=== PATIENT | male | born 1965 | race Caucasian/White ===

== ENCOUNTER 2018-04-14 13:29 | Emergency (ER) | payer MEDICAID, OTHER ==
[~2018-04-14] VITALS: Ht 175.3 cm; Wt 86.4 kg
[2018-04-14 13:35] VITALS: BP 110/67
== END 2018-04-14 19:00 | disposition left against medical advice (07) ==
LOC: ER 18:01
DX: M54.89 Other dorsalgia (principal); Z53.21 Procedure and treatment not carried out due to patient leaving prior to being seen by health care provider

== ENCOUNTER 2018-12-04 21:53 | Emergency (ER) | payer OTHER ==
[~2018-12-04] VITALS: Ht 175.3 cm; Wt 87.0 kg
[2018-12-05] MEDS ORDERED: FLUORESCEIN SODIUM 1MG/STRIP OP ONE (02:30)
[2018-12-05] MEDS ORDERED: TETRACAINE 0.5% OPHTH DROPS 4ML OP ONE (02:30)
[2018-12-05 06:09] VITALS: BP 135/79
== END 2018-12-05 06:54 | disposition home or self-care (01) ==
LOC: ER 21:53
DX: S02.2XXA Fracture of nasal bones, initial encounter for closed fracture (principal); S05.01XA Injury of conjunctiva and corneal abrasion without foreign body, right eye, initial encounter; S05.11XA Contusion of eyeball and orbital tissues, right eye, initial encounter; Y04.2XXA Assault by strike against or bumped into by another person, initial encounter; Y93.89 Activity, other specified; Y92.89 Other specified places as the place of occurrence of the external cause
CPT/HCPCS: 70486; 99284